=== PATIENT | female | born 1970 | race Caucasian/White ===

== ENCOUNTER → 2021-12-04 | Outpatient (CLI) | payer OTHER ==
--- NOTE | 2021-12-04 10:28 | XR ---
EXAMINATION TYPE: XR chest 2V DATE OF EXAM: 12/04/2021 COMPARISON: NONE HISTORY: Presurgical study. History of hypertension. TECHNIQUE: Frontal and lateral views of the chest are obtained. FINDINGS: Underlying mild emphysematous change may be present as there is flattening of the hemidiaph ragms on lateral view and increased retrosternal airspace. There is no focal air space opacity, pleur al effusion, or pneumothorax seen. The cardiac silhouette size is within normal limits. The osseou s structures are intact. IMPRESSION: No acute cardiopulmonary process.
[2021-12-04 11:04] LABS: INR 0.9 (<1.2); Partial Thromboplastin Time 24.4 sec (22.0-30.0)
[2021-12-04 14:25] LABS: Basophils # (A) 0.03 X 10*3/uL (0.00-0.10); Basophils % (A) 0.3 %; Eosinophils # (A) 0.27 X 10*3/uL (0.04-0.35); Eosinophils % (A) 3.1 %; HCT 37.6 % (37.2-46.3); Immature Grans, Automated 0.2 %; Lymphocytes # (A) 2.47 X 10*3/uL (0.90-5.00); Lymphocytes % (A) 28.2 %; MCH 28.5 pg (27.0-32.0); MCHC 31.9 g/dL (32.0-37.0); MCV 89.3 fL (80.0-97.0); Monocytes # (A) 0.92 X 10*3/uL (0.20-1.00); Monocytes % (A) 10.5 %; NRBC Per 100 WBC 0 /100 WBCS (0.0-0.0); Neutrophils # (A) 5.04 X 10*3/uL (1.80-7.70); Neutrophils % (A) 57.7 %; Platelet Count 264 X 10*3/uL (140-440); RBC 4.21 X 10*6/uL (4.10-5.20); RDW 14.6 % (11.5-14.5); WBC 8.75 X 10*3/uL (4.50-10.00)
[2021-12-04 15:29] LABS: African American GFR (CKD) 115.5 (60.0-200.0); Anion Gap 9.6 mmol/L (10.00-18.00); BUN/Creat Ratio 20.29 Ratio (12.00-20.00); Blood Urea Nitrogen 14.2 mg/dL (9.0-27.0); Calcium 9.4 mg/dL (8.7-10.3); Carbon Dioxide 23.4 mmol/L (20.0-27.5); Non-African American GFR(CKD) 99.6 (60.0-200.0); Potassium 4.9 mmol/L (3.5-5.5)
[2021-12-04 17:15] LABS: Appearance,Urine Clear (Clear); Bilirubin,Urine Negative (Negative); Blood,Urine Negative (Negative); Color,Urine Yellow (Yellow); Ketones,Urine Negative (Negative); Nitrite,Urine Negative (Negative); PH, Urine 5.5 (5.0-8.0); Specific Gravity,Urine 1.015 (1.001-1.030); Urobilinogen,Urine 0.2 (0.2,1.0)
== END | disposition home or self-care (01) ==
LOC: LABWHC1 09:12
PROVIDERS: ATTEND Orthopaedic Surgery Orthopaedic Surgery of the Spine
DX: Z01.818 Encounter for other preprocedural examination (principal); M48.00 Spinal stenosis, site unspecified
CPT/HCPCS: 36415; 71046; 80048; 81003; 85025; 85610; 85730

== ENCOUNTER 2021-12-16 06:11 | Day surgery (SDC) | payer OTHER ==
[2021-12-15 09:23] VITALS: BMI 37.9
[~2021-12-16 06:11] MED LIST: ceFAZolin 1,000 MG in SODIUM CHLORIDE 0.9% IRRIGATIO 1,000 ML IRRIGATION PRN
[2021-12-16] MEDS ORDERED: LIDOCAINE 1% (10MG/ML) FOR IV START INTRADERMA PRN (06:29)
[2021-12-16] MEDS ORDERED: LACTATED RINGERS 1,000 ML IV SCH (06:29)
[2021-12-16] MEDS ORDERED: ONDANSETRON 4 MG/2 ML VIAL IVP ONE (06:29)
[2021-12-16 06:42] VITALS: TEMP 98.5
[2021-12-16] MEDS ORDERED: LACTATED RINGERS 1,000 ML IV ONE ×2 (06:51→09:55)
[2021-12-16] MEDS: ONDANSETRON 4 MG/2 ML VIAL ONE ×2 (06:53→09:38)
[2021-12-16] MEDS ORDERED: GLYCOPYRROLATE 0.2 MG/ML 2 ML VIAL ONE (07:25)
[2021-12-16] MEDS ORDERED: NEOSTIGMINE 1 MG/ML 10 ML VIAL ONE (07:25)
[2021-12-16] MEDS ORDERED: diphenhydrAMINE 50 MG/ML 1 ML VIAL ONE (07:25)
[2021-12-16] MEDS ORDERED: SUCCINYLCHOLINE CHLORIDE 100 MG/5 ML SYR IV ONE (07:25)
[2021-12-16] MEDS ORDERED: PHENYLEPHRINE-0.9% NACL SYG 1,000 MCG/10 ML SYRINGE ONE (07:25)
[2021-12-16] MEDS ORDERED: ROCURONIUM 10 MG/ML (5 ML VIAL) IV ONE (07:25)
[2021-12-16] MEDS ORDERED: LIDOCAINE 2% INJ 20 MG/ML (2 ML VIAL) ONE (07:25)
[2021-12-16] MEDS ORDERED: MIDAZOLAM 2 MG/2 ML VIAL ONE (07:25)
[2021-12-16] MEDS ORDERED: fentaNYL (PF) 50 MCG/ML 2 ML AMP ONE (07:25)
[2021-12-16] MEDS ORDERED: PROPOFOL 10 MG/ML 20 ML VIAL IV ONE (07:25)
[2021-12-16] MEDS ORDERED: THROMBIN (BOVINE) 5,000 UNIT VIAL TOPICAL ONE (08:01)
[2021-12-16] MEDS ORDERED: GELATIN SPONGE,ABSORB (SMALL) 1 EACH SPONGE TOPICAL ONE ×2 (08:01→08:05)
[2021-12-16] MEDS ORDERED: BUPIVACAIN-EPI 0.25%-1:200,000 30 ML VIAL SQ ONE (08:01)
[2021-12-16] MEDS ORDERED: methylPREDNISolone ACETATE 40 MG/ML 1 ML VIAL MISCELLANE ONE ×3 (08:07→08:43)
--- NOTE | 2021-12-16 08:30 | FL ---
Fluoroscopy History: T10-11 decompression fl time of 20 secs and [address] ross used c-arm for a lumb laminec disc
[2021-12-16] MEDS ORDERED: BENZOCAINE/MENTHOL LOZENG 1 EACH LOZENGE MUCOUS MEM PRN (09:01)
[2021-12-16] MEDS ORDERED: CYCLOBENZAPRINE 10 MG TAB PO PRN (09:01)
[2021-12-16] MEDS ORDERED: HYDROmorphone 1 MG/ML 1 ML SYRINGE IVP PRN (09:01)
[2021-12-16] MEDS ORDERED: HYDROcodone/APAP 5-325MG 1 EACH TAB PO PRN (09:01)
[2021-12-16] MEDS ORDERED: HYDROmorphone 0.5 MG/0.5 ML SYRINGE IVP PRN (09:01)
[2021-12-16] MEDS ORDERED: ONDANSETRON 4 MG/2 ML VIAL IVP PRN (09:01)
[2021-12-16] MEDS ORDERED: SODIUM CHLORIDE 0.9% 1,000 ML IV SCH (09:15)
--- NOTE | 2021-12-16 09:15 | P.OP ---
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 Daiz Photoengraver Apprentice: Dl Bragg is present throughout the entire the case persistence during positioning, dissection, exposure, visualization, and all crucial elements of the case as well as closure. Anesthesia: General anesthesia per Dr. Dr. Reese Estimated blood loss: Approximately 100 mL Complications: None apparent Components implanted: None Disposition: To recovery room in good stable condition. OPERATIVE INDICATIONS The patient has been having issues in their lower back and lower extremities. She is having some difficulty with her lower extremity function and pain around her abdomen radiating from her back. She is having some evidence of early myelopathic symptoms as well. She has a long history of lumbar issues and lumbar surgery. She was also found to have severe stenosis at T10 11 which correlated with many of her symptoms. The patient has been through conservative treatment. We discussed the possibility of decompression alone at T10 11 as well as the possibility of decompression and extension of her fusion at her lumbar spine and she was interested in pursuing the decompression of her cord at T10 11 after long discussions with her. We discussed various treatment options including surgery, and the patient wishes to proceed with surgery We discussed the risk, patient's alternatives and benefits of surgery including but not limited to, risk of bleeding risk of infection, risk of need for further surgery, risk of decreased, loss of motion, loss of function, nerve damage, paralysis, heart attack, blindness and . OPERATIVE SUMMARY After discussing all the risks, patient alternatives and benefits at length, the patient elected to proceed with surgical intervention, signed informed consent, and presented for their procedure. The patient was seen and examined in the preoperative holding area and the surgical site was marked. The patient was given antibiotics and brought to the operating room. The patient was sedated and intubated by anesthesia in standard fashion. The patient was positioned on to the operating room table in a prone position on the appropriate frame which was well-padded and well molded. We were careful to pad any bony prominences and pressure points. We were careful to maintain the patient's cervical spine and good neutral alignment and position throughout. The patient was prepped and draped in a normal standard fashion. An appropriate timeout and keystone protocol performed. We were able to proceed with the surgery. Fluoroscopy was utilized to establish the appropriate level referencing from the lumbar spine with the hardware from L3 to S1 encountering up to T10 11 . The local wound area was infiltrated with local anesthetic. An incision was made at the midline longitudinally over the appropriate levels over T10 11. Dissection was taken down subcutaneously to the level of the fascia which was split midline. Dissection was taken over the lamina. Intraoperative fluoroscopy was taken which showed a marker at the appropriate level of T10 11 referencing up from the hardware from L3 to S1.. With the appropriate level positively confirmed, we were able to proceed with laminectomy. The wound was copiously irrigated and suctioned dry as had been done periodically throughout the case. I performed a laminectomy with a combination of curettes and a high-speed bur and Kerrison rongeurs. There is significant overgrowth of the facet joints at T10 11 causing severe stenosis at that level. I was able to grind down significant portion of bone and then removed that with a curet and Kerrison rongeurs. A small medial facetectomy was performed again further access. A partial foraminotomy was also performed. Portions of the ligamentum flavum were taken down to further decompress centra lly. I do not see any obvious cystic formation or mass. I do not see any extruded disc fragments. There is no evidence of dural tear or leak. Good hemostasis maintained. The wound was copiously irrigated and suctioned dry. Good decompression was noted. We were able to proceed with closure. The fascia was closed for a watertight closure. The subcuticular tissue was closed with absorbable suture. The wound was cleaned and dried and dressed with the appropriate dressing. The drapes were broken down. The patient was gently rolled back onto their hospital bed being careful to maintain their cervical spine and good neutral alignment and position. They were woken up by anesthesia, extubated, and brought to the recovery room in good stable condition. The patient will be admitted to the hospital for observation and for appropriate postoperative care, medical management and monitoring. We will continue to follow them closely about the postoperative course.
[2021-12-16] MEDS: HYDROmorphone 0.5 MG/0.5 ML SYRINGE IVP PRN ×2 (09:32→09:45)
[2021-12-16] MEDS ORDERED: HYDROcodone/APAP 5-325MG 1 EACH TAB PO ONE (10:37)
[2021-12-16 11:22] VITALS: BP 96/66; PULSE 64; RESP 16
[2021-12-16] MEDS ORDERED: ACETAMINOPHEN TAB 500 MG TAB PO SCH (12:00)
[2021-12-17] MEDS ORDERED: ASPIRIN 81 MG PO SCH (09:00)
[2021-12-17] MEDS ORDERED: lisinopriL 20 MG TAB PO SCH (09:00)
[2021-12-17] MEDS ORDERED: CITALOPRAM HYDROBROMIDE 20 MG TAB PO SCH (09:00)
[2021-12-17] MEDS ORDERED: hydroCHLOROthiazide 12.5 MG CAP PO SCH (09:00)
== END 2021-12-16 11:25 | disposition home or self-care (01) ==
LOC: OR 06:11
PROVIDERS: ATTEND Orthopaedic Surgery Orthopaedic Surgery of the Spine
DX: M48.04 Spinal stenosis, thoracic region (principal); G95.9 Disease of spinal cord, unspecified; I10 Essential (primary) hypertension; F32.A Depression, unspecified; R32 Unspecified urinary incontinence; M21.379 Foot drop, unspecified foot; Z97.3 Presence of spectacles and contact lenses; Z98.84 Bariatric surgery status; Z98.890 Other specified postprocedural states; Z82.49 Family history of ischemic heart disease and other diseases of the circulatory system; Z87.891 Personal history of nicotine dependence; Z79.82 Long term (current) use of aspirin; Z79.899 Other long term (current) drug therapy; Z88.0 Allergy status to penicillin
CPT/HCPCS: 81025; 72070; 63046; J2250; J1200; J1030; J2710; J0690 ×2; J2405; J3010; J2370; J0330; J2704; J1170; J2001; 86850; 86900; 86901

== ENCOUNTER → 2024-07-09 | Outpatient (CLI) | payer OTHER ==
--- NOTE | 2024-07-09 14:49 | CT ---
EXAMINATION TYPE: CT lumbar spine wo con DATE OF EXAM: 07/09/2024 2:11 PM COMPARISON: None CLINICAL INDICATION: Female, 54 years old with history of M79.12 MYALGIA OF AUXILIARY MUSCLES, HEAD A ND NECK; PHH, back pain due to broken hardware TECHNIQUE: Unenhanced CT of the lumbar spine was performed. Bone and soft tissue window settings are submitted as well as coronal and sagittal reconstructions. CT DLP: 1408.[address] CTDI: mGy Automated exposure control for dose reduction was used. FINDINGS: CT lumbar spine without contrast HISTORY: Back pain COMPARISON: None. TECHNIQUE: Multiple axial images are obtained through the lumbar spine from T11 through S2 without co ntrast. FINDINGS: There are postsurgical changes of laminectomy and posterior metallic fusion from L3 through S1. There is no lumbar spine fracture. There is a grade 2 anterolisthesis of L4 on L5. There is marked di sc space narrowing of the L4-5 disc indicating marked degenerative disc disease. There is mild degene rative disease at the L1 to an L2-3 levels where there is mild spondylosis but no significant disc sp allison narrowing. Note is made that the pedicle screws at the S1 level fractured just distal to the posterior stabiliza tion rods. Secondary to facet hypertrophy, thickening of ligamentum flavum with calcifications are present in th e spinal there are severe spinal stenosis at the L2-3 level. The sacrum and SI joints. IMPRESSION: 1. Wide laminectomy and posterior metallic fusion from L3 through S1. 2. fractured pedicle screws at the S1 level. 3 severe spinal stenosis at the L2-3 level. 4. Grade 2 anterolisthesis of L4 on L5 and marked disc space narrowing at the L4-5 level. 5. No large disc herniations. [facility], , 07/09/2024 2:46 PM
== END | disposition home or self-care (01) ==
LOC: RADCTMAIN 13:34
PROVIDERS: ATTEND Orthopaedic Surgery Orthopaedic Surgery of the Spine
DX: M48.061 Spinal stenosis, lumbar region without neurogenic claudication (principal); M51.16 Intervertebral disc disorders with radiculopathy, lumbar region; M79.12 Myalgia of auxiliary muscles, head and neck; M43.16 Spondylolisthesis, lumbar region
CPT/HCPCS: 72131

== ENCOUNTER → 2024-08-29 | Outpatient (CLI) | payer OTHER ==
[2024-08-29 12:08] VITALS: BP 165/98; PULSE 70; RESP 16; TEMP 97.7
--- NOTE | 2024-08-29 16:42 | P.PAINPG ---
PQRS Measure Charge Sheet Comment: HISTORY OF PRESENT ILLNESS: A 54 yr old female as a referral from Dr Diaz presents today w severe and chronic LBP > 4 yrs secondary to T10-T11 Laminectomy/ Decompression/ Partial Facetomy/ Foraminotomy , L3-S1 PLDF w Hardware for evaluation. Pt states pain level is provoked at 10 /10 in intensity, intermittent, localized in the lumbosacral spine, predominantly axial, dull in character w occasional shooting pain towards the tailbone & thighs. Pain is provoked by laying supine. Pain is alleviated by PT x 6 wks which ended in Spring 2023, physician guided home exercises 4-5 times weekly since Spring 2023, heat, medications (Neurontin), repositioning and rest . Oswestry axial pain score at 30. PMH: OA, MDD, UI PSH: T10-T11 Laminectomy/ Decompression/ Partial Facetomy/ Foraminotomy (2021), L3-S1 PLDF w Hardware (2018), SH: Hx of tobacco use, Occ ETOH use, Cannabis use FH: Non contributory All: See list Meds: See list REVIEW OF ORGAN SYSTEMS: CONSTITUTIONAL: No fevers or chills. No recent weight loss. NEUROLOGICAL: + numbness and tingling along the distal extremities. No seizure disorders or headaches. MUSCULOSKELETAL: + pain PSYCHIATRIC: Denies current depression or suicidal thoughts. Physical Examinations : Constitutional : Cooperative , not in acute distress . Neurologic : Cranial nerve II to XII intact. No focal neurological deficits. Psychiatric : alert & oriented x 3. Matching mood & appropriate affect. Judgment & insight intact. Musculoskeletal : Cervical Spine Motor strength in the deltoid and biceps: Normal right side. Normal Left side Motor strength biceps and the wrist extensors: Normal right side . Normal left side Motor strength in the triceps muscle: Normal right side. Normal left side Deep tendon reflexes: Normal at the biceps. Normal at Brachioradialis. Normal at triceps Vertebral body tenderness to deep palpation over Cervical facet loading test: positive bilaterally Spurling test: positive bilaterally Neck distraction test: positive bilaterally Jordy sign: positive bilaterally Lumbar spine Motor strength lower extremities ,thigh and legs 5/5 Right side , 5/5 Left side Deep tendon reflexes : Normal Knee Jerk. Normal Ankle Jerk Vertebral body tenderness over L2 Jackson Test positive BL L1-L2 Lumbar facet Loading Test: positive Rig ht / positive Left Range of motion of the lumbar spine Flexion 30 degrees, extension 10 degrees Straight Leg Raise test: Left/ Right positive at degrees Denis test: positive right / positive left. Severe tenderness over the Sacroiliac joint on the Right / Left sides Gaenslen test: positive bilaterally Seated flexion test: positive bilaterally. Sacral spine : Severe tenderness over the Sacroiliac joint: right side / left side Range of motion: Flexion of the lumbar spine <60 degrees Range of motion: Extension of the lumbar spine <20 degrees Gaenslen's Test positive Denis test: positive right side / left side Thigh Thrust Test Sacral Thrust Test Imaging: CT non contrast lumbar spine from 07/09/25 reviewed Assessment/ Plan : L3-S1 Laminectomy w Hardware, L4-L5 anterolisthesis, L2-L3 severe spinal st enosis Recommendation of IVETT L1-L2 #1. Risks, benefits of procedure discussed and patient verbalized understanding. Admits to anti- coagulant use or medical history of diabetes. Protocol for discontinuation/ continuation of medications marlena procedure discussed. All questions answered. I have spent greater than 30 minutes on patient care today. Dr Yhe was available by phone for the evaluation of this patient. The time was used to review the medical records including relevant urine studies and Prescription history (MAPs), review of the available imaging, evaluation and examination of the patient, coordination of care with the medical staff and if applicable referring physicians, as well as creation of the medical record Home Medications: Ambulatory Orders Aspirin [Adult Low Dose Aspirin EC] 81 mg PO DIRECTED 12/15/21 Cyanocobalamin (Vitamin B-12) [Vitamin B-12] 1 tab PO DAILY 08/29/24 Estrogen Complete 1 tab PO DAILY 08/29/24 Gabapentin 300 mg PO DAILY 08/29/24 Gabapentin 600 mg PO BID 08/29/24 Ibuprofen [Motrin] 800 mg PO Q8H PRN 08/29/24 Multivitamins, Thera [Multivitamin (formulary)] 1 tab PO DAILY 08/29/24 Psyllium Husk [Metamucil] 1 cap PO DAILY 08/29/24 Solifenacin Succinate 10 mg PO DAILY 08/29/24 Venlafaxine HCl ER [Effexor Xr] 75 mg PO DAILY 08/29/24 lamoTRIgine [LaMICtal] 75 mg PO DAILY 08/29/24 Controlled Substance Measures - Controlled Substance Measures Is patient prescribed a controlled substance at discharge?: No
== END ==
LOC: PNWHC3 10:36
PROVIDERS: ATTEND Specialist
DX: M43.16 Spondylolisthesis, lumbar region (principal); M48.061 Spinal stenosis, lumbar region without neurogenic claudication; M96.1 Postlaminectomy syndrome, not elsewhere classified; F12.90 Cannabis use, unspecified, uncomplicated; Z88.0 Allergy status to penicillin
CPT/HCPCS: 99211

== ENCOUNTER → 2024-10-03 | Outpatient (CLI) | payer OTHER ==
[2024-10-03 11:25] VITALS: BP 157/82; PULSE 97; RESP 16; TEMP 96.8
--- NOTE | 2024-10-03 14:34 | P.PAINPG ---
PQRS Measure Charge Sheet Comment: HISTORY OF PRESENT ILLNESS: A 54 yr old female presents today w severe and chronic LBP > 4 yrs secondary to T10-T11 Laminectomy/ Decompression/ Partial Facetomy/ Foraminotomy, L3-S1 PLDF w Hardware for evaluation s/p IVETT L1-L2 #1. Pt states she experienced 0 % pain relief x 2 wks s/p procedure. Pt states pain level is provoked at 9 /10 in intensity, intermittent, localized in the lumbosacral spine, predominantly axial, dull in character w occasional shooting pain towards the L buttock. Pain is provoked by reading and over activity. Pain is alleviated by PT x 6 wks which ended in Spring 2023, physician guided home exercises 4-5 times weekly since Spring 2023, heat, medications, repositioning and rest . Interventional procedures include IVETT L1-L2 x1 Medications include Neurontin, Cannabis use REVIEW OF ORGAN SYSTEMS: CONSTITUTIONAL: No fevers or chills. No recent weight l oss. NEUROLOGICAL: + numbness and tingling along the distal extremities. No seizure disorders or headaches. MUSCULOSKELETAL: + pain PSYCHIATRIC: Denies current depression or suicidal thoughts. Physical Examinations : Constitutional : Cooperative , not in acute distress . Neurologic : Cranial nerve II to XII intact. No focal neurological deficits. Psychiatric : alert & oriented x 3. Matching mood & appropriate affect. Judgment & insight intact. Musculoskeletal : Cervical Spine Motor strength in the deltoid and biceps: Normal right side. Normal Left side Motor strength biceps and the wrist extensors: Normal right side . Normal left side Motor strength in the triceps muscle: Normal right side. Normal left side Deep tendon reflexes: Normal at the biceps. Normal at Brachioradialis. Normal at triceps Vertebral body tenderness to deep palpation over Cervical facet loading test: positive bilaterally Spurling test: positive bilaterally Neck distraction test: positive bilaterally Jordy sign: positive bilaterally Lumbar spine Motor strength lower extremities ,thigh and legs 5/5 Right side , 5/5 Left side Deep tendon reflexes : Normal Knee Jerk. Normal Ankle Jerk Vertebral body tenderness over L2 Jackson Test positive BL L1-L2 Lumbar facet Loading Test: positive Right / positive Left Range of motion of the lumbar spine Flexion 30 degrees, extension 10 degrees Straight Leg Raise test: Left/ Right positive at degrees Denis test: positive right / positive left. Severe tenderness over the Sacroiliac joint on the Right / Left sides Gaenslen test: positive bilaterally Seated flexion test: positive bilaterally. Sacral spine : Severe tenderness over the Sacroiliac joint: right side / left side Range of motion: Flexion of the lumbar spine <60 degrees Range of motion: Extension of the lumbar spine <20 degrees Gaenslen's Test positive Denis test: positive right side / left side Thigh Thrust Test Sacral Thrust Test Imaging: CT non contrast lumbar spine from 07/09/25 reviewed Assessment/ Plan : L3-S1 Laminectomy w Hardware, L4-L5 anterolisthesis, L2-L3 severe spinal stenosis Will follow up w Dr Diaz to explore additional treatment options. All questions answered. I have spent greater than 30 minutes on patient care today. Dr Yeh was a vailable by phone for the evaluation of this patient. The time was used to review the medical records including relevant urine studies and Prescription history (MAPs), review of the available imaging, evaluation and examination of the patient, coordination of care with the medical staff and if applicable referring physicians, as well as creation of the medical record PQRS Narrative: Hx Alcohol Use (MH) No Home Medications: Ambulatory Orders Aspirin [Adult Low Dose Aspirin EC] 81 mg PO TUTH 12/15/21 Cyanocobalamin (Vitamin B-12) [Vitamin B-12] 1 tab PO DAILY 08/29/24 Gabapentin 300 mg PO DAILY@1200 08/29/24 Gabapentin 600 mg PO BID 08/29/24 Ibuprofen [Motrin] 800 mg PO Q8H PRN 08/29/24 Multivitamins, Thera [Multivitamin (formulary)] 1 tab PO DAILY 08/29/24 Psyllium Husk [Metamucil] 1 cap PO DAILY 08/29/24 Solifenacin Succinate 10 mg PO QAM 08/29/24 Venlafaxine HCl ER [Effexor Xr] 75 mg PO QAM 08/29/24 lamoTRIgine [LaMICtal] 75 mg PO QAM 08/29/24 Controlled Substance Measures - Controlled Substance Measures Is patient prescribed a controlled substance at discharge?: No
== END ==
LOC: PNWHC3 10:51
PROVIDERS: ATTEND Specialist
DX: M43.16 Spondylolisthesis, lumbar region (principal); M48.061 Spinal stenosis, lumbar region without neurogenic claudication; M96.1 Postlaminectomy syndrome, not elsewhere classified; Z88.0 Allergy status to penicillin; F12.90 Cannabis use, unspecified, uncomplicated
CPT/HCPCS: 99211